=== PATIENT | female | born 1935 | race Caucasian/White ===

== ENCOUNTER 2017-04-08 12:24 | Inpatient (IN) | payer MEDICARE, BC ==
[~2017-04-08] VITALS: Ht 170.2 cm; Wt 74.7 kg
[2017-04-08 13:52] LABS: BASO % 0.2 % (0.0-2.0); EOS # 0.1 (0.0-0.7); GRAN % 72.7 % (42.2-75.2); HEMOGLOBIN 13.8 g/dl (12.5-16.0); LYMPH % 20.2 % (20.0-51.0); MEAN CELL VOLUME 96 fl (80.0-100.0); MEAN CORPUSCULAR HEMOGLOBIN 33 pg (27.0-31.0); MEAN CORPUSCULAR HGB CONC 35 g/dl (33.0-37.0); MEAN PLATELET VOLUME 9.8 fl (7.4-10.4); MONO # 0.5 (0.1-0.6); MONO % 5.6 % (1.7-9.3); PLATELET COUNT 158 K/mm3 (130-400); RED BLOOD COUNT 4.15 M/mm3 (4.10-5.30); WHITE BLOOD COUNT 9.7 K/mm3 (4.8-10.8)
[2017-04-08 14:02] LABS: ALBUMIN 4.2 gm/dL (3.5-5.0); BILIRUBIN,TOTAL 0.7 mg/dL (0.0-1.0); C-REACTIVE PROTEIN 0.7 mg/dL (0.0-0.9); CALCIUM 10.2 mg/dL (8.4-10.2); CREATININE, serum 1.58 mg/dL (0.52-1.25); POTASSIUM 3.2 mmol/L (3.4-5.0); TOTAL PROTEIN 7.3 gm/dL (6.4-8.2)
[2017-04-08 14:09] LABS: INFLUENZA A NEGATIVE; INFLUENZA B NEGATIVE
[2017-04-08 14:11] LABS: TROPONIN-I 0.015 ng/mL (0.000-0.034)
[2017-04-08 14:34] LABS: COLLECTION METHOD CLEAN CATCH
[2017-04-08 14:39] LABS: PH 7 (5-8); SQUAMOUS EPITHELIAL 0-2 /hpf; URINE APPEARANCE Clear; URINE BACTERIA None Seen /hpf; URINE BILIRUBIN Negative (NEGATIVE); URINE BLOOD Negative (NEGATIVE); URINE COLOR Yellow; URINE GLUCOSE Negative (NEGATIVE); URINE KETONE Negative (NEGATIVE); URINE LEUKOCYTE ESTERASE Negative (NEGATIVE); URINE PROTEIN(semi-quant) Negative (NEGATIVE); URINE RBC 0-2 /hpf; URINE UROBILINOGEN Negative (NEGATIVE); URINE WBC 0-2 /hpf
[2017-04-08] MEDS ORDERED: SYNTHROID0.075 MG/T PO (14:58)
[2017-04-08] MEDS ORDERED: ZYLOPRIM 100MG100 MG PO (14:59)
[2017-04-08] MEDS ORDERED: MOBIC15 MG PO (14:59)
[2017-04-08] MEDS ORDERED: ZOVIRAX 200MG200 MG PO (15:00)
[2017-04-08] MEDS ORDERED: PLENDIL 5MG TAB5 MG PO (16:02)
[2017-04-08 17:26] VITALS: PULSE 78; TEMP 97.8
[2017-04-08 18:51] VITALS: BP 142/70
[2017-04-08 20:03] VITALS: BP 142/67; PULSE 74; TEMP 98.7
[2017-04-08 23:32] VITALS: BP 155/65; PULSE 67; TEMP 98.3
[2017-04-09 03:51] VITALS: BP 146/64; PULSE 69; TEMP 98.6
[2017-04-09 07:33] LABS: BASO % 0.2 % (0.0-2.0); EOS # 0.2 (0.0-0.7); EOS % 2.6 % (0-4.0); GRAN # 4.2 (1.4-6.5); GRAN % 69.2 % (42.2-75.2); LYMPH # 1.3 (1.2-3.4); LYMPH % 21.7 % (20.0-51.0); MEAN CELL VOLUME 100 fl (80.0-100.0); MEAN CORPUSCULAR HGB CONC 33 g/dl (33.0-37.0); MEAN PLATELET VOLUME 10.6 fl (7.4-10.4); MONO # 0.4 (0.1-0.6); MONO % 6.1 % (1.7-9.3); PLATELET COUNT 123 K/mm3 (130-400); RED BLOOD COUNT 3.32 M/mm3 (4.10-5.30); WHITE BLOOD COUNT 6.1 K/mm3 (4.8-10.8)
[2017-04-09 07:46] LABS: CALCIUM 8.6 mg/dL (8.4-10.2); CREATININE, serum 1.28 mg/dL (0.52-1.25); POTASSIUM 3.6 mmol/L (3.4-5.0)
[2017-04-09 07:53] LABS: HEMATOCRIT 33.2 % (37.0-47.0); HEMOGLOBIN 11.1 g/dl (12.5-16.0); MEAN CORPUSCULAR HEMOGLOBIN 33 pg (27.0-31.0)
[2017-04-09 08:04] VITALS: BP 143/61; PULSE 74; TEMP 97.9
[2017-04-09 08:15] LABS: THYROID STIMULATING HORMONE 1.47 uIU/mL (0.465-4.680)
[2017-04-09 11:01] VITALS: BP 153/59; PULSE 68; TEMP 98.4
[2017-04-09 15:34] VITALS: BP 163/62; PULSE 64; TEMP 98.8
[2017-04-09 20:10] VITALS: BP 162/59; PULSE 61; TEMP 98.4
[2017-04-10 00:41] VITALS: BP 149/57; PULSE 69; TEMP 98
[2017-04-10 04:33] VITALS: BP 153/68; PULSE 62; TEMP 98.9
[2017-04-10 07:50] VITALS: BP 157/61; PULSE 59; TEMP 97.3
[2017-04-10 08:00] LABS: BASO % 0.4 % (0.0-2.0); EOS # 0.2 (0.0-0.7); EOS % 4.2 % (0-4.0); GRAN # 3.7 (1.4-6.5); GRAN % 64.3 % (42.2-75.2); HEMATOCRIT 34.5 % (37.0-47.0); HEMOGLOBIN 11.6 g/dl (12.5-16.0); LYMPH # 1.4 (1.2-3.4); MEAN CELL VOLUME 99 fl (80.0-100.0); MEAN CORPUSCULAR HEMOGLOBIN 33 pg (27.0-31.0); MEAN CORPUSCULAR HGB CONC 34 g/dl (33.0-37.0); MEAN PLATELET VOLUME 9.9 fl (7.4-10.4); MONO # 0.3 (0.1-0.6); MONO % 5.6 % (1.7-9.3); PLATELET COUNT 118 K/mm3 (130-400); RED BLOOD COUNT 3.48 M/mm3 (4.10-5.30); WHITE BLOOD COUNT 5.7 K/mm3 (4.8-10.8)
[2017-04-10 08:15] LABS: CREATININE, serum 1.4 mg/dL (0.52-1.25); POTASSIUM 3.4 mmol/L (3.4-5.0)
[2017-04-10 11:25] VITALS: BP 161/67; PULSE 62; TEMP 98.3
[2017-04-10 15:49] VITALS: BP 153/63; PULSE 66; TEMP 97.5
[2017-04-10 20:38] VITALS: BP 181/68; PULSE 68; TEMP 98.8
[2017-04-11 00:38] VITALS: BP 141/61; PULSE 73; TEMP 98.9
[2017-04-11 04:05] VITALS: BP 141/55; PULSE 66; TEMP 99.3
[2017-04-11 07:21] LABS: BASO % 0.1 % (0.0-2.0); EOS # 0.3 (0.0-0.7); EOS % 3.7 % (0-4.0); GRAN # 4.4 (1.4-6.5); GRAN % 66.4 % (42.2-75.2); HEMOGLOBIN 12.2 g/dl (12.5-16.0); LYMPH # 1.5 (1.2-3.4); LYMPH % 22.5 % (20.0-51.0); MEAN CELL VOLUME 100 fl (80.0-100.0); MEAN CORPUSCULAR HEMOGLOBIN 34 pg (27.0-31.0); MEAN CORPUSCULAR HGB CONC 34 g/dl (33.0-37.0); MONO # 0.5 (0.1-0.6); MONO % 6.9 % (1.7-9.3); PLATELET COUNT 125 K/mm3 (130-400); RED BLOOD COUNT 3.61 M/mm3 (4.10-5.30); WHITE BLOOD COUNT 6.7 K/mm3 (4.8-10.8)
[2017-04-11 07:36] LABS: CALCIUM 9.3 mg/dL (8.4-10.2); CREATININE, serum 1.5 mg/dL (0.52-1.25); POTASSIUM 3.5 mmol/L (3.4-5.0)
[2017-04-11 07:51] VITALS: BP 165/60; PULSE 63; TEMP 98.7
[2017-04-11] MEDS ORDERED: OMNICEF 300MG300 MG PO (08:53)
[2017-04-11] MEDS ORDERED: ANTI-DIARRHEAL2 MG PO (08:53)
== END 2017-04-11 10:15 | disposition home or self-care (01) | DRG 194 ==
LOC: COL.ER 12:24 → MEDICAL 14:53
PROVIDERS: Emergency Medicine; Family Medicine; Physician Assistant
DX: J18.9 Pneumonia, unspecified organism (principal); C95.90 Leukemia, unspecified not having achieved remission; N17.9 Acute kidney failure, unspecified; E87.6 Hypokalemia; I10 Essential (primary) hypertension
CPT/HCPCS: 99222-AI; 99231-AI; 99232-AI; 99239; J1650; J1956; J2543; J3370; J7030; J7050

== ENCOUNTER 2018-06-28 15:32 | Observation (INO) | payer MEDICARE, BC ==
[~2018-06-28] VITALS: Ht 172.7 cm; Wt 70.8 kg
[~2018-06-28 15:32] MED LIST: ANTI-DIARRHEAL2 MG PO; MOBIC15 MG PO; OMNICEF 300MG300 MG PO; PLENDIL 5MG TAB5 MG PO; SYNTHROID0.075 MG/T PO; ZOVIRAX 200MG200 MG PO; ZYLOPRIM 100MG100 MG PO
[2018-06-28 16:29] LABS: COLLECTION METHOD CATHETER
[2018-06-28 16:33] LABS: MEAN CELL VOLUME 90 fl (80.0-100.0); MEAN CORPUSCULAR HGB CONC 34 g/dl (33.0-37.0); PLATELET COUNT 59 K/mm3 (130-400); RED BLOOD COUNT 3.24 M/mm3 (4.10-5.30); REDCELL DISTRIBUTION WIDTH-CV 16.4 % (11.5-14.5)
[2018-06-28 16:37] LABS: PH 7 (5-8); SQUAMOUS EPITHELIAL None Seen /hpf; URINE APPEARANCE Clear; URINE BACTERIA None Seen /hpf; URINE BILIRUBIN Negative (NEGATIVE); URINE BLOOD Negative (NEGATIVE); URINE COLOR Yellow; URINE GLUCOSE Negative (NEGATIVE); URINE KETONE Negative (NEGATIVE); URINE LEUKOCYTE ESTERASE Negative (NEGATIVE); URINE NITRATE Negative (NEGATIVE); URINE PROTEIN(semi-quant) Negative (NEGATIVE); URINE RBC 0-2 /hpf; URINE UROBILINOGEN Negative (NEGATIVE)
[2018-06-28 16:50] LABS: ALBUMIN 3.6 gm/dL (3.5-5.0); BILIRUBIN,TOTAL 0.6 mg/dL (0.0-1.0); C-REACTIVE PROTEIN 0.9 mg/dL (0.0-0.9); CALCIUM 9.1 mg/dL (8.4-10.2); CREATININE, serum 2.13 mg/dL (0.52-1.25)
[2018-06-28 16:52] LABS: HEMATOCRIT 29.1 % (37.0-47.0); HEMOGLOBIN 9.9 g/dl (12.5-16.0); MEAN CORPUSCULAR HEMOGLOBIN 31 pg (27.0-31.0)
[2018-06-28 17:05] LABS: ANISOCYTOSIS 1+; BAND 1 % (0-10); EOSINOPHIL 3 % (0-4); LYMPHOCYTE 72 % (20.0-51.0); NEUTROPHILS 23 % (42.0-75.2); PLATELET ESTIMATE NORMAL (NORMAL)
[2018-06-28] MEDS ORDERED: PROBIOTIC GOLD1 EACH (17:24)
[2018-06-28] MEDS ORDERED: CRANBERRY 100 M1 SGL (17:25)
[2018-06-28] MEDS ORDERED: ANTIVERT 25MG25 MG PO (19:48)
[2018-06-28] MEDS ORDERED: ACIDOPHILIS PO ×4 (19:49→23:28)
[2018-06-28] MEDS ORDERED: ATROVENT I0.2 MG/1 M IH (19:49)
[2018-06-28] MEDS ORDERED: MICRO-K 10 EXT10 MEQ PO (19:50)
[2018-06-28] MEDS ORDERED: PLENDIL10 MG PO (19:51)
[2018-06-28 19:58] VITALS: PULSE 89; TEMP 98.7
[2018-06-28] MEDS ORDERED: ZOFRAN 4MG T4 MG/TAB PO (22:07)
[2018-06-28] MEDS ORDERED: SYNTHROID0.075 MG/T PO ×2 (22:07→23:14)
[2018-06-28] MEDS ORDERED: B-12 250 MCG PO (22:07)
[2018-06-28] MEDS ORDERED: CRANBERRY 100 M1 SGL PO (22:08)
[2018-06-28] MEDS ORDERED: ZOFRAN ODT4 MG PO (23:10)
[2018-06-28] MEDS ORDERED: THIAMINE 1100 MG/TAB PO (23:13)
[2018-06-28] MEDS ORDERED: AZO-CRANBERRY450 MG PO (23:16)
[2018-06-28] MEDS ORDERED: DIFLUCAN200 MG PO (23:18)
[2018-06-28] MEDS ORDERED: TAB-A-VITE1 TA1 PO (23:18)
[2018-06-28] MEDS ORDERED: CIPRO 500MG TA500 MG PO (23:19)
[2018-06-28] MEDS ORDERED: ZYLOPRIM 100MG100 MG PO (23:20)
[2018-06-28] MEDS ORDERED: BETAPACE 80MG80 MG PO (23:20)
[2018-06-28] MEDS ORDERED: KENALOG 60 ML60 M1 TP (23:23)
[2018-06-28] MEDS ORDERED: TYLENOL 325MG325 MG PO (23:23)
[2018-06-28] MEDS ORDERED: K-DUR 10 MEQ T10 MEQ PO (23:24)
[2018-06-28] MEDS ORDERED: MULTI VITAMINS1 TAB PO (23:25)
[2018-06-28] MEDS ORDERED: TRAVEL SICKNESS25 MG PO (23:26)
[2018-06-28] MEDS ORDERED: LEVAQUIN 5500 MG/TA1 PO (23:26)
[2018-06-28] MEDS ORDERED: IPRATROPIUM BROM3 M1 IH (23:27)
[2018-06-29] VITALS: BP 124/53; PULSE 77; TEMP 98.7
[2018-06-29] MEDS ORDERED: ZOVIRAX 200MG200 MG PO ×2 (01:13→01:19)
[2018-06-29] MEDS ORDERED: PLENDIL10 MG PO (01:17)
[2018-06-29 04:14] VITALS: BP 125/49; PULSE 78; TEMP 98
--- NOTE | 2018-06-29 05:21 | NUR ---
Pt slept well during the night, no C/O pain, VS have remained stable, admission assessment, suicide, and family history were completed.
[2018-06-29 07:32] LABS: MEAN CELL VOLUME 94 fl (80.0-100.0); MEAN CORPUSCULAR HGB CONC 32 g/dl (33.0-37.0); MEAN PLATELET VOLUME 10.5 fl (7.4-10.4); RED BLOOD COUNT 2.66 M/mm3 (4.10-5.30); REDCELL DISTRIBUTION WIDTH-CV 16.4 % (11.5-14.5)
[2018-06-29 07:41] LABS: CALCIUM 7.9 mg/dL (8.4-10.2); CREATININE, serum 1.47 mg/dL (0.52-1.25)
[2018-06-29 07:50] LABS: HEMOGLOBIN 8.1 g/dl (12.5-16.0); MEAN CORPUSCULAR HEMOGLOBIN 30 pg (27.0-31.0)
[2018-06-29 07:51] LABS: PLATELET COUNT 37 K/mm3 (130-400)
--- NOTE | 2018-06-29 08:11 | NUR ---
Patient resting in bed this am. Alert, very hard of hearing making communication difficult especially with mask on per neutropenic precautions. Patient was up and reports a BM this am. Patient IVF per orders to [place] [facility]. Patient given Am meds, we reviewed. She denies pain, minimal needs. Adriano carrasco
[2018-06-29 08:16] VITALS: BP 124/46; PULSE 81; TEMP 98.4
--- NOTE | 2018-06-29 11:31 | NUR ---
Patient sitting up in bed visiting with significant other. Patient has been up to the bathroom & had another BM. Assisted with pericare. Will continue to [facility]
[2018-06-29 11:40] LABS: ANISOCYTOSIS 1+; LYMPHOCYTE 92 % (20.0-51.0); NEUTROPHILS 8 % (42.0-75.2); PLATELET ESTIMATE DECREASED (NORMAL)
[2018-06-29 12:04] VITALS: BP 117/50; PULSE 82; TEMP 98
--- NOTE | 2018-06-29 13:12 | NUR ---
Real Estate Transaction Manager visited with patient. Nothing else needed at this time.
--- NOTE | 2018-06-29 14:57 | NUR ---
Patient ready for discharge. Hospialist team rounded & discharge orders obtained. Patient given all instructions with her spouse at bedside. We reviewed her medication list & last dose given. We discussed Stool softners & Miralax to keep bowel movements routine. 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 Reviewed the importance of staying away from crowds & anyone who is Ill. We discussed importance of fully cooked & warmed foods & fruits and vegtables that are cooked or peeled. Patient plans to see [facility] on Sunday & Primary care the following week already scheduled due to patient recently moving to the area from [facility]. Patient wheeled out with all belongigns. Her & her spouse deny questions or concerns.
--- NOTE | 2018-06-29 16:32 | NUR ---
SW unable to meet with patient before discharge.
== END 2018-06-29 15:02 | disposition home or self-care (01) ==
LOC: COL.ER 15:32 → MEDICAL 18:23
PROVIDERS: Emergency Medicine; Nurse Practitioner Family; ADMIT Hospitalist
DX: R10.31 Right lower quadrant pain (principal); K56.41 Fecal impaction; R33.9 Retention of urine, unspecified; N17.9 Acute kidney failure, unspecified; I12.9 Hypertensive chronic kidney disease with stage 1 through stage 4 chronic kidney disease, or unspecified chronic kidney disease; N18.9 Chronic kidney disease, unspecified; C95.90 Leukemia, unspecified not having achieved remission; Z79.811 Long term (current) use of aromatase inhibitors; F03.90 Unspecified dementia, unspecified severity, without behavioral disturbance, psychotic disturbance, mood disturbance, and anxiety; Z87.01 Personal history of pneumonia (recurrent); Z96.653 Presence of artificial knee joint, bilateral; Z90.710 Acquired absence of both cervix and uterus; D70.9 Neutropenia, unspecified; E87.1 Hypo-osmolality and hyponatremia; E87.2 Acidosis; Z79.899 Other long term (current) drug therapy; Z87.440 Personal history of urinary (tract) infections
CPT/HCPCS: G0378; J1644; J2270; J2405; J7030